=== PATIENT | male | born 1960 | race Two or more races ===

== ENCOUNTER 2019-08-05 12:18 | Inpatient (IN) | payer OTHER ==
[~2019-08-05] VITALS: Ht 170.2 cm; Wt 83.9 kg
[2019-08-05 06:24] VITALS: BP 129/91
--- NOTE | 2019-08-05 12:45 | NUR ---
PT BROUGHT INTO EMERGENCY ROOM FOR C/C [id number] FOR DIZZINESS, NAUSEA THAT STARTED AT 1100 WILL CONTINUE TO MONITOR
[2019-08-05] MEDS ORDERED: ASPI-1152 PO (12:48)
[2019-08-05] MEDS ORDERED: NITR0.4T48 PO (12:48)
[2019-08-05] MEDS ORDERED: ERGO500040 PO (12:48)
[2019-08-05] MEDS ORDERED: ATOR80TA PO (12:48)
[2019-08-05] MEDS ORDERED: TAMS-12 PO (12:48)
[2019-08-05] MEDS ORDERED: AMLO5TAB4 PO (12:48)
[2019-08-05] MEDS ORDERED: METO-358 PO (12:48)
[2019-08-05] MEDS ORDERED: LISI-603 PO (12:48)
--- NOTE | 2019-08-05 12:51 | NUR ---
PT ABLE TO MOVE ALL EXTREMITIES NO WEAKNESS NOTED ABLE TO TRACK WITH EYES CURRENTLY PT RUBBIBG FORE HEAD C/O HEADACHE.
[2019-08-05] MEDS ORDERED: ACETAMINOPHEN 325 MG TABLET PO ONE (13:30)
[2019-08-05] MEDS ORDERED: MECLIZINE HCL 12.5 MG TABLET PO ONE (13:30)
[2019-08-05 13:42] LABS: BASOPHILS % (AUTO) 0.3 % (0.0-2.0); EOSINOPHILS % (AUTO) 0.2 % (0.0-6.0); HEMATOCRIT 43 % (39-51); HEMOGLOBIN 14.4 g/dL (13.5-17.5); LYMPHOCYTES # (AUTO) 1.1 /CMM (0.8-4.8); LYMPHOCYTES % (AUTO) 9.8 % (20.0-44.0); MEAN CORPUSCULAR HGB CONC 34 g/dl (31.0-36.0); MEAN CORPUSCULAR VOLUME 90 fL (80-96); MONOCYTES # (AUTO) 0.6 /CMM (0.1-1.30); MONOCYTES % (AUTO) 5.2 % (2.0-12.0); NEUTROPHILS # (AUTO) 9.4 /CMM (1.8-8.9); NEUTROPHILS % (AUTO) 84.5 % (43.0-81.0); PLATELET COUNT (AUTO) 200 /CMM (150-450); RED BLOOD CELL COUNT(AUTO) 4.72 MIL/uL (4.5-6.0); WHITE BLOOD COUNT (AUTO) 11.2 K/uL (4.3-11.0)
[2019-08-05 13:50] LABS: CALCIUM, SERUM 9.7 mg/dL (8.5-10.1); CARBON DIOXIDE 29 mmol/L (21-32); CHLORIDE 104 mmol/L (98-107); CREATININE 0.8 mg/dL (0.6-1.3); GLUCOSE 110 mg/dL (74-106); POTASSIUM 4.1 mmol/L (3.5-5.1); SODIUM SERUM 137 mmol/L (136-145); UREA NITROGEN, BLOOD 12 mg/dL (7-18)
[2019-08-05 13:56] LABS: ALANINE AMINOTRANSFERASE 34 U/L (12-78); ALKALINE PHOSPHATASE 70 U/L (46-116); ASPARTATE AMINOTRANSFERASE 34 U/L (15-37); BILIRUBIN,DIRECT 0.1 mg/dL (0.0-0.2); BILIRUBIN,TOTAL 0.4 mg/dL (0.2-1.0); TOTAL PROTEIN, SERUM 7.5 g/dL (6.4-8.2)
[2019-08-05] MEDS ORDERED: MECLIZINE HCL 25 MG TABLET ONE ×2 (14:03→14:33)
[2019-08-05] MEDS ORDERED: ACETAMINOPHEN ES 500 MG TABLET ONE ×2 (14:03→14:34)
[2019-08-05] MEDS ORDERED: IBUPROFEN 600 MG TABLET PO ONE ×2 (15:25→15:30)
--- NOTE | 2019-08-05 15:28 | NUR ---
pt given motrin water and walked to bath room pt able to drink water and hold flid down although when pt walked to bath room c/ room spinning.
--- NOTE | 2019-08-05 16:09 | NUR ---
still waiting for auth
--- NOTE | 2019-08-05 16:53 | NUR ---
call or contact centre team leader physician informed for panel
--- NOTE | 2019-08-05 16:54 | NUR ---
called nursing sup for ms bed
[2019-08-05] MEDS ORDERED: HYDROCODONE/APAP 5/325MG 1 EACH TABLET PO PRN (17:30)
[2019-08-05] MEDS ORDERED: MAG HYDROX/AL HYDROX/SIMETH 30 ML UDC PO PRN (17:30)
[2019-08-05] MEDS ORDERED: ZOLPIDEM TARTRATE 5 MG TABLET PO PRN (17:30)
[2019-08-05] MEDS ORDERED: ACETAMINOPHEN 325 MG TABLET PO PRN (17:30)
[2019-08-05] MEDS ORDERED: MORPHINE SULFATE INJ 2 MG/ML DISP.SYRIN IV PRN (17:30)
[2019-08-05] MEDS ORDERED: MAGNESIUM HYDROXIDE 30 ML UDC PO PRN (17:30)
[2019-08-05] MEDS ORDERED: IV NS 0.9% 1,000 ML IV PRN (17:30)
[2019-08-05] MEDS ORDERED: ONDANSETRON HCL/PF 4 MG/2 ML VIAL IVP PRN (17:30)
[2019-08-05] MEDS ORDERED: MECLIZINE HCL 12.5 MG TABLET PO PRN (17:30)
[2019-08-05] MEDS ORDERED: METOPROLOL SUCCINATE 50 MG TAB.SR.24H PO SCH (18:00)
[2019-08-05] MEDS ORDERED: NITROGLYCERIN 0.4 MG/TAB BOTTLE SL PRN (18:00)
--- NOTE | 2019-08-05 18:35 | NUR ---
MS RN NOTES RECEIVED PT FROM ER DEPT. A/O X4. UPPER SORBIAN SPEAKING. ABLE TO UNDERSTAND A LITTLE MACEDONIAN. PT IS AMBULATORY. SON IN LAW PRESENT AT BEDSIDE AND ABLE TO TRANSLATE TO PT AND PROVIDED A LITTLE HISTORY OF PT. PT TOLERATING RA, WITH NO ACUTE RESPIRATORY DISTRESS NOTED. PT DENIES ANY PAIN AT THIS TIME, ONLY DIZZINESS. PT AWARE NURSES GAVE HIM MEDICINES FOR VERTIGO. ADMITTING MARKETING DEVELOPMENT SPECIALIST/HOSPITALIST/NN AWARE OF ADMISSION AND PLACED ORDERS. PT HAS NO IV LINE, ANGELITO/OSVALDO MADE AWARE WELL. PT KEPT COMFORTABLE IN BED. CALL LIGHT KEPT WITHIN REACH. PT'S BED IN LOWEST, LOCKED POSITION WITH SRX3. WILL ENDORSE TO INCOMING NIGHT NURSE FOR ROHAN AND ADMISSION PROCESS/ASSESSMENTS. VITALS TAKEN AND RECORDED.
--- NOTE | 2019-08-05 19:08 | NUR ---
MS RN NOTES ER NURSE/MP JUST INITIATED IV TO RFA G20, FLUSHED WITH NS INTACT AND OPERATIONAL.
--- NOTE | 2019-08-05 19:50 | NUR ---
RN NOTES RECEIVED PATIENT AWAKE IN BED, SYRIAC SPEAKING WITH SOME MALAYSIAN, NO SIGNS OF ACUTE DISTRESS NOTED, COMPLAINTS OF DIZZINESS AT THIS TIME, INSTRUCTED PATIENT TO STAY IN BED AND USE CALL LIGHT WHEN EVER HE NEEDS HELP, FAMILY MEMBERS AT BEDSIDE, SON-IN-LAW TRANSLATES THE CONVERSATION, SAFETY MEASURES IN PLACE, KEPT COMFORTABLE, ALL NEEDS ATTENDED, ADMISSION ASSESSMENT AND DOCUMENTATION DONE, WILL CONTINUE TO MONITOR ACCORDINGLY.
[2019-08-05 20:00] VITALS: BP 156/78
[2019-08-05 20:30] VITALS: BP 156/78
[2019-08-05 20:50] VITALS: BP 138/76
[2019-08-05] MEDS ORDERED: ATORVASTATIN 40 MG TABLET PO SCH (22:00)
--- NOTE | 2019-08-06 06:15 | NUR ---
RN NOTES FAMILY MEMBERS SUGGESTING IF WE CAN REFER PATIENT TO EENT ( EYES,EARS, NOSE AND THROAT ) SPECIALIST. WILL ENDORSE TO AM NURSE.
[2019-08-06 06:57] LABS: BASOPHILS # (AUTO) 0.1 /CMM (0.0-0.2); EOSINOPHILS % (AUTO) 1.5 % (0.0-6.0); HEMATOCRIT 40 % (39-51); LYMPHOCYTES # (AUTO) 2.7 /CMM (0.8-4.8); LYMPHOCYTES % (AUTO) 43.5 % (20.0-44.0); MEAN CORPUSCULAR HGB CONC 35 g/dl (31.0-36.0); MEAN CORPUSCULAR VOLUME 89 fL (80-96); MONOCYTES # (AUTO) 0.6 /CMM (0.1-1.30); MONOCYTES % (AUTO) 9.6 % (2.0-12.0); NEUTROPHILS # (AUTO) 2.7 /CMM (1.8-8.9); NEUTROPHILS % (AUTO) 44.4 % (43.0-81.0); PLATELET COUNT (AUTO) 210 /CMM (150-450); WHITE BLOOD COUNT (AUTO) 6.2 K/uL (4.3-11.0)
--- NOTE | 2019-08-06 06:58 | NUR ---
RN NOTES ALL NEEDS ATTENDED AND MET, ABLE TO REST AND SLEPT INTERVALS, PATIENT AWAKE IN BED, AMHARIC SPEAKING WITH SOME VIETNAMESE, NO SIGNS OF ACUTE DISTRESS NOTED, COMPLAINTS OF DIZZINESS AT THIS TIME, SON IN-LAW AT BEDSIDE, VITAL SIGNS TAKEN FOLLOWS BP 129/91, HR 61, RR 18 SATING 98%, DENIES ANY PAIN OR DISCOMFORT AT THIS TIME. ENDORSE TO AM NURSE FOR CONTINUITY OF CARE.
[2019-08-06 07:19] LABS: CALCIUM, SERUM 8.5 mg/dL (8.5-10.1); CREATININE 0.9 mg/dL (0.6-1.3); PHOSPHORUS 2.5 mg/dL (2.5-4.9); POTASSIUM 3.5 mmol/L (3.5-5.1)
[2019-08-06] MEDS ORDERED: PANTOPRAZOLE 40 MG TABLET.DR PO SCH (07:30)
[2019-08-06 07:33] LABS: THYROID STIMULATING HORMONE 1.009 uIU/mL (0.358-3.74)
--- NOTE | 2019-08-06 07:49 | NUR ---
RN OPENING NOTES Patient received on room air, no sob noted, a/o x4 and speaks mainly honduran. Patient has son in law bedside. RFA #20 with NS 75 ml per hour. Patient denies pain at this time. Bed at the lowest setting, call light within reach, side rails up x2.
[2019-08-06 08:00] VITALS: BP 157/98
[2019-08-06 08:45] VITALS: BP 140/91
[2019-08-06] MEDS ORDERED: TAMSULOSIN 0.4 MG CAP.SR.24H PO SCH (09:00)
[2019-08-06] MEDS ORDERED: ASPIRIN EC 81 MG TABLET.DR PO SCH (09:00)
[2019-08-06] MEDS ORDERED: AMLODIPINE BESYLATE 5 MG TABLET PO SCH (09:00)
[2019-08-06] MEDS ORDERED: LISINOPRIL (20MG) 20 MG TABLET PO SCH (09:00)
--- NOTE | 2019-08-06 14:21 | NUR ---
RN NOTES DISCHARGE Patient discharged at this time. no sob noted, vital signs stable. Patient's son in law signed all paperwork, denied any missing belongings, and stated that he understood the discharge plans and has no any other questions. Patient has all the paperwork in their possession.
== END 2019-08-06 14:20 | disposition home or self-care (01) | DRG 111 ==
LOC: ER 12:19 → MED 17:18
PROVIDERS: ADMIT Nurse Practitioner Acute Care; ATTEND Nurse Practitioner Acute Care
DX: H81.10 Benign paroxysmal vertigo, unspecified ear (principal); E78.5 Hyperlipidemia, unspecified; F17.210 Nicotine dependence, cigarettes, uncomplicated; I10 Essential (primary) hypertension; I25.10 Atherosclerotic heart disease of native coronary artery without angina pectoris; Z95.5 Presence of coronary angioplasty implant and graft; N40.0 Benign prostatic hyperplasia without lower urinary tract symptoms; Z79.82 Long term (current) use of aspirin
CPT/HCPCS: 36415; 70450-TC; 80048-TC; 80061-TC; 80076-TC; 83735-TC; 84100-TC; 84443-TC; 84484-TC; 85025-TC; 87081-TC; 93307-TC; 97116-TC; 97530-TC; G0378; J7030; J8597